=== PATIENT | male | born 1950 | race Caucasian/White ===

== ENCOUNTER 2017-10-31 10:03 | Emergency (ER) | payer OTHER ==
[~2017-10-31] VITALS: Ht 190.5 cm; Wt 127.0 kg
[~2017-10-31 10:03] MED LIST: AMLODIPINE BESYL5 M1 PO; ASPIR LOW81 MG PO; ATENOLOL50 MG PO; CENTRUM1 TAB PO; CLINDAMYCIN HC300 MG PO; GLUCOSAMINE CHO1 CA2 PO; LAC PO; LOSARTAN POTASS25 M1 PO; OMEGA 3 PO; SIMVASTATIN40 M1 PO; [UNRECOGNIZED DRUG - OTHER] PO
[2017-10-31 10:12] VITALS: Ht 190.5 cm; Wt 127.0 kg
[2017-10-31 12:35] VITALS: BP 141/71
== END 2017-10-31 12:36 | disposition home or self-care (01) ==
LOC: ED 10:03
DX: M25.551 Pain in right hip (principal); I10 Essential (primary) hypertension; E78.00 Pure hypercholesterolemia, unspecified; G89.29 Other chronic pain; M54.9 Dorsalgia, unspecified; Z98.890 Other specified postprocedural states

== ENCOUNTER 2020-09-01 05:16 | Emergency (ER) | payer OTHER ==
[~2020-09-01] VITALS: Ht 188 cm; Wt 128.8 kg
[2020-09-01 05:23] VITALS: Ht 188 cm; Wt 128.8 kg
[2020-09-01 07:19] LABS: BASOPHIL % 0.3 % (0-2); PLATELET COUNT 249 x10^3mcL (130-400); RED CELL DISTRIBUTION WIDTH 13.6 % (11.5-14.5)
[2020-09-01 07:27] LABS: CALCIUM 9.1 mg/dL (8.5-10.1); CARBON DIOXIDE 28.9 mmol/L (21-32); CHLORIDE SERUM 103 mmol/L (98-107); CREATININE SERUM 1.1 mg/dL (0.7-1.3); GLUCOSE SERUM 122 mg/dL (74-106); POTASSIUM SERUM 4.2 mmol/L (3.5-5.1); SODIUM SERUM 139 mmol/L (136-145)
[2020-09-01 07:32] LABS: ALBUMIN 3.5 g/dL (3.4-5.0); ALKALINE PHOSPHATASE 56 U/L (46-116); ALT/SGPT 27 U/L (16-63); AST/SGOT 19 U/L (15-37); BILIRUBIN TOTAL 0.4 mg/dL (0.20-1.00); TOTAL PROTEIN, SERUM 7.6 g/dL (6.4-8.2)
[2020-09-01 09:21] VITALS: BP 129/69
== END 2020-09-01 09:21 | disposition home or self-care (01) ==
LOC: ED 05:16
PROVIDERS: Emergency Medicine
DX: N20.0 Calculus of kidney (principal); I10 Essential (primary) hypertension; E78.00 Pure hypercholesterolemia, unspecified; Z98.890 Other specified postprocedural states
CPT/HCPCS: J1885